=== PATIENT | female | born 1990 | race Caucasian/White ===

== ENCOUNTER 2024-02-03 09:56 | Day surgery (SDC) | payer OTHER ==
[~2024-02-03] VITALS: Ht 162.6 cm; Wt 67.9 kg
[~2024-02-03 09:56] MED LIST: BUPR2SUB SL; SYNT100T PO
[2024-02-03] MEDS ORDERED: IBUP-1114 PO (10:28)
[2024-02-03] MEDS ORDERED: LR 1,000 ML IV SCH ×2 (10:35→13:05)
[2024-02-03] MEDS ORDERED: MIDAZOLAM INJ 2MG/2ML VIAL As Ordered ONE (11:14)
[2024-02-03] MEDS ORDERED: propofoL 200 MG/20 ML VIAL As Ordered ONE (11:26)
[2024-02-03] MEDS ORDERED: ROCURONIUM BROMIDE 50MG/5ML VIAL As Ordered ONE (11:27)
[2024-02-03] MEDS ORDERED: ONDANSETRON 4MG 2ML VIAL As Ordered ONE (11:28)
[2024-02-03] MEDS ORDERED: fentaNYL 100 MCG/2 ML INJECTION As Ordered ONE (11:49)
[2024-02-03] MEDS: CLINDAMYCIN 900 MG in IV 1 EA IV ONE (12:19)
[2024-02-03] MEDS: OXYMETAZOLINE 0.05% NASAL SPRAY (AFRIN) As Ordered ONE (12:19)
[2024-02-03] MEDS ORDERED: KETOROLAC 60MG 2ML VIAL As Ordered ONE (12:33)
[2024-02-03] MEDS ORDERED: ACETAMINOPHEN 1000MG 100ML IV BAG As Ordered ONE (12:34)
[2024-02-03] MEDS ORDERED: SUGAMMADEX SODIUM 500 MG/5 ML VIAL (BRIDION) As Ordered ONE (12:34)
[2024-02-03] MEDS: LIDOCAINE 2% W/ EPINEPHRINE 1.7 ML DENTAL INJ As Ordered ONE (12:37)
[2024-02-03] MEDS ORDERED: oxyCODONE 5MG TAB PO PRN (13:05)
[2024-02-03] MEDS ORDERED: fentaNYL 100 MCG/2 ML INJECTION IV PRN (13:05)
[2024-02-03] MEDS: ONDANSETRON 4MG 2ML VIAL IV PRN (13:19)
[2024-02-03] MEDS: HYDROMORPHONE HCL 0.5 MG/ 0.5 ML SYRINGE IV PRN (13:19)
[2024-02-03 14:11] VITALS: BP 112/66; TEMP 97.5; O2SAT 98
== END 2024-02-03 14:25 | disposition home or self-care (01) ==
LOC: M SDC 09:56
PROVIDERS: ATTEND Dentist
DX: K02.9 Dental caries, unspecified (principal); F40.232 Fear of other medical care; E03.9 Hypothyroidism, unspecified; Z91.013 Allergy to seafood; Z88.0 Allergy status to penicillin; Z88.2 Allergy status to sulfonamides; Z79.899 Other long term (current) drug therapy; Z79.890 Hormone replacement therapy; F17.210 Nicotine dependence, cigarettes, uncomplicated; F11.11 Opioid abuse, in remission
CPT/HCPCS: 88300; C9290; D7140; D7210; D9223; J0131; J0737; J1100; J1170; J1885; J2250; J2405; J3010